=== PATIENT | male | born 1945 | race Caucasian/White ===

== ENCOUNTER 2016-10-13 09:24 | Emergency (ER) | payer MEDICARE ==
[2016-10-13 08:30] LABS: BASOPHIL 0.2 % (0-2); EOSINOPHIL 0.2 % (0-7); HCT 44.5 % (42.0-52.0); HGB 14.9 g/dl (13.2-18.0); MCHC 33.5 g/dL (32.0-36.0); MCV 92.5 fL (78.0-100.0); MONOCYTE 9.6 % (0-12); MPV 9.6 fL (6.0-9.5); PLT 287 K/uL (150-400); RBC 4.81 M/uL (4.70-6.00); RDW 13.1 % (11.5-14.0)
[2016-10-13 08:40] LABS: INR 0.94 (0.9-1.2); PROTHROMBIN TIME 12.2 SECONDS (11.7-14.0)
[2016-10-13 08:41] LABS: PTT 31.3 SECONDS (23.2-31.4)
[2016-10-13 08:47] LABS: BILIRUBIN - TOTAL 0.6 mg/dL (0.1-1.0); CREATININE 0.9 mg/dL (0.7-1.2); GLOBULIN (CALCULATION) 2.8 g/dL (2.2-4.2); TOTAL PROTEIN 7.8 g/dL (6.4-8.3)
[2016-10-13 08:53] LABS: BILIRUBIN NEGATIVE (NEGATIVE); BLOOD NEGATIVE Ery/uL (NEGATIVE); CLARITY CLEAR (CLEAR); COLOR YELLOW (YELLOW); GLUCOSE (U) NORMAL (NORMAL); KETONE (U) TRACE mg/dL (NEGATIVE); LEUKOCYTES NEGATIVE Leu/uL (NEGATIVE); NITRITE NEGATIVE (NEGATIVE); PROTEIN NEGATIVE (NEGATIVE); UROBILINOGEN 0.2 mg/dL (0.2-1.0); pH 6.5 (5.0-9.0)
== END 2016-10-13 09:48 | disposition home or self-care (01) ==
LOC: FER 09:24
PROVIDERS: Internal Medicine
DX: R10.9 Unspecified abdominal pain (principal); R11.2 Nausea with vomiting, unspecified; K21.9 Gastro-esophageal reflux disease without esophagitis; E11.9 Type 2 diabetes mellitus without complications; I10 Essential (primary) hypertension; E78.5 Hyperlipidemia, unspecified; J44.9 Chronic obstructive pulmonary disease, unspecified; Z79.84 Long term (current) use of oral hypoglycemic drugs; Z79.899 Other long term (current) drug therapy; Z79.51 Long term (current) use of inhaled steroids
CPT/HCPCS: 36415; 74022; 80053; 81003; 83690; 85025; 85610; 85730; 86140; 99284